=== PATIENT | female | born 1985 | race Caucasian/White ===

== ENCOUNTER 2018-02-25 20:14 | Emergency (ER) | payer OTHER ==
--- NOTE | 2018-02-25 20:27 | CPEKG ---
Heart Rate: 77 RR Interval: 779 P-R Interval: 136 QRSD Interval: 80 QT Interval: 396 QTC Interval: 449 P [place]: 47 QRS [place]: 60 T Wave [place]: 25 EKG Severity - NORMAL ECG - EKG Impression: SINUS RHYTHM Electronically Signed By: Steve Vasquez 25-Feb-2018 21:12:44
--- NOTE | 2018-02-25 20:43 | EDPHY ---
H & P Stated Complaint: Palpitations Time Seen by Provider: 02/25/18 20:23 HPI/ROS: CHIEF COMPLAINT: Palpitations HISTORY OF PRESENT ILLNESS: The patient presents the ED with a 4 day history of palpitations. She reports symptoms that occur only at night and with rest. She describes a sensation of a skipped beat occurring with some frequency. She states that during the day she is asymptomatic. She has no symptoms with exertion. She denies any chest pain or shortness of breath currently. She does have brief breathlessness with her palpitations. The patient denies any asymmetric calf pain or swelling. She denies pleuritic chest pain. There is no family history of arrhythmia. The patient takes no regular medications. REVIEW OF SYSTEMS: A comprehensive 10 point review of systems is otherwise negative aside from elements mentioned in the history of present illness. Source: Patient Exam Limitations: No limitations - Personal History LMP (Females 10-55): 8-14 Days Ago Current Tetanus/Diphtheria Vaccine: Yes - Medical/Surgical History Hx Asthma: Yes Hx Chronic Respiratory Disease: No Hx Diabetes: No Hx Cardiac Disease: No Hx Renal Disease: No Hx Cirrhosis: No Hx Alcoholism: No Hx HIV/AIDS: No Hx Splenectomy or Spleen Trauma: No Other PMH: DENY - Social History Smoking Status: Never smoked - Physical Exam Exam: General Appearance: Alert, no distress Eyes: Pupils equal and round no pallor or injection ENT, Mouth: Mucous membranes moist Respiratory: There are no retractions, lungs are clear to auscultation Cardiovascular: Regular rate and rhythm Gastrointestinal: Abdomen is soft and nontender, no masses, bowel sounds normal Neurological: 5/5 strength all 4 extremities Skin: Warm and dry, no rashes Musculoskeletal: Neck is supple nontender Extremities: symmetrical, full range of motion Constitutional: Initial Vital Signs Temperature (C) 37.0 C 02/25/18 20:28 Heart Rate 73 02/25/18 20:28 Respiratory Rate 16 02/25/18 20:28 Blood Pressure 132/86 H 02/25/18 20:28 O2 Sat (%) 97 02/25/18 20:28 O2 Delivery Mode Room Air Allergies/Adverse Reactions: No Known Allergies Allergy (Unverified 02/25/18 20:30) Home Medications: Medication Instructions Recorded Afrin Nasal [place] 11/03/15 Malarone 250/100 mg Tab (RX) 11/03/15 Pepto-Bismol 11/03/15 Ciprofloxacin [Cipro] 500 mg PO BID #5 tab 11/04/15 Ondansetron Odt [Zofran Odt 4 mg 4 mg PO Q4PRN PRN #10 tab 11/04/15 (*)] Medical Decision Making - Diagnostics EKG Interpretation: EKG: Complete interpretation has been separately recorded in the [email or web address] archive. Summary impression: Sinus rhythm, rate 77 ED Course/Re-evaluation: The patient presents to the ED with palpitations at rest over the past several days. The patient was noted to have occasional unifocal PVCs on her monitoring in the ED. The patient has no symptoms suggestive of ischemia. Her laboratory studies are within normal limits including her CBC, electrolytes, troponin and TSH. The patient has been given follow up with our on-call correctional classification counselor. She will be discharged home with customary aftercare instructions and return precautions. Differential Diagnosis: Differential diagnosis considered includes PVCs, PACs, SVT, dehydration, metabolic abnormality - Data Points Laboratory Results: Laboratory Results 02/25/18 21:00 02/25/18 21:00 02/25/18 02/25/18 02/25/18 21:10 21:00 21:00 WBC 7.03 10^3/uL 10^3/uL (3.80-9.50) RBC 4.37 10^6/uL 10^6/uL (4.18-5.33) Hgb 13.6 g/dL g/dL (12.6-16.3) Hct 40.2 % % (38.0-47.0) MCV 92.0 fL fL (81.5-99.8) MCH 31.1 pg pg (27.9-34.1) MCHC 33.8 g/dL g/dL (32.4-36.7) RDW 11.4 % L % (11.5-15.2) Plt Count 251 10^3/uL 10^3/uL (150-400) MPV 9.4 fL fL (8.7-11.7) Neut % (Auto) 52.1 % % (39.3-74.2) Lymph % (Auto) 36.6 % % (15.0-45.0) Patrick % (Auto) 8.8 % % (4.5-13.0) Eos % (Auto) 1.7 % % (0.6-7.6) Baso % (Auto) 0.7 % % (0.3-1.7) Nucleat RBC Rel Count 0.0 % % (0.0-0.2) Absolute Neuts (auto) 3.66 10^3/uL 10^3/uL (1.70-6.50) Absolute Lymphs (auto) 2.57 10^3/uL 10^3/uL (1.00-3.00) Absolute Monos (auto) 0.62 10^3/uL 10^3/uL (0.30-0.80) Absolute Eos (auto) 0.12 10^3/uL 10^3/uL (0.03-0.40) Absolute Basos (auto) 0.05 10^3/uL 10^3/uL (0.02-0.10) Absolute Nucleated RBC 0.00 10^3/uL 10^3/uL (0-0.01) Immature Gran % 0.1 % % (0.0-1.1) Immature Gran # 0.01 10^3/uL 10^3/uL (0.00-0.10) Sodium 143 mEq/L mEq/L (135-145) Potassium 4.1 mEq/L mEq/L (3.3-5.0) Chloride 105 mEq/L mEq/L (97-110) Carbon Dioxide 29 mEq/l mEq/l (22-31) Anion Gap 9 mEq/L mEq/L (8-16) BUN 14 mg/dL mg/dL (7-23) Creatinine 0.8 mg/dL mg/dL (0.6-1.0) Estimated GFR > 60 Glucose 94 mg/dL mg/dL (70-100) Calcium 9.2 mg/dL mg/dL (8.5-10.4) POC Troponin I 0.01 ng/mL ng/mL (0.00-0.08) Troponin I < 0.012 ng/mL ng/mL (0.000-0.034) TSH 2.190 uIU/mL uIU/mL (0.465-4.680) Point of Care Test Results: Chemistry 02/25/18 21:10 POC Troponin I 0.01 ng/mL ng/mL (0.00-0.08) Departure - Departure Disposition: Home, Routine, Self-Care Clinical Impression: Palpitations, PVC's (premature ventricular contractions) Condition: Good Instructions: Premature Ventricular Contractions (ED) Additional Instructions: 1. We did note occasional PVCs in the emergency department which are a benign arrhythmia. 2. Return to the ED for any markedly worsening symptoms, exertional chest pain, difficulty breathing or other concerns. 3. I do recommend following up with our correctional classification counselor Dr. Lloyd for further evaluation. Referrals: Dany Delgado [Primary Care Provider] - As per Instructions Johanna Lloyd MD [Medical Doctor] - As per Instructions
[2018-02-25 21:17] LABS: PLATELET COUNT 251 10^3/uL (150-400)
[2018-02-25 22:33] VITALS: BP 119/69
== END 2018-02-25 22:32 | disposition home or self-care (01) ==
DX: I49.3 Ventricular premature depolarization (principal); J45.909 Unspecified asthma, uncomplicated
CPT/HCPCS: 84484-PO